=== PATIENT | male | born 1955 | race Caucasian/White ===

== ENCOUNTER 2025-04-13 12:56 | Observation (INO) | payer MEDICARE, OTHER ==
[2025-04-13] MEDS ORDERED: Aspirin Chewable 81 MG TAB ONE (13:34)
[2025-04-13] MEDS ORDERED: Dexamethasone 10 MG/ML VIAL ONE (13:34)
[2025-04-13] MEDS ORDERED: dilTIAZem 25 MG/5 ML VIAL ONE (13:35)
[2025-04-13] MEDS ORDERED: Magnesium 2 GM/50 ML BAG (IN WATER) ONE (13:35)
[2025-04-13] MEDS ORDERED: Enoxaparin 60 MG (0.6 mL) SYRINGE ONE (13:35)
[2025-04-13] MEDS ORDERED: cefTRIAXone (ROCEPHIN) 2 GM VIAL ONE (14:59)
[2025-04-13 15:00] LABS: #Basophils 0.10 10x3/uL (0.0-0.2); #Eosinophils 0.11 10x3/uL (0.0-0.7); #Monocytes 0.71 10x3/uL (0.11-0.59); #Neutrophils 9.06 10x3/uL (1.40-6.50); %Basophils 0.9 % (0.0-1.0); %Eosinophils 1.0 % (0.0-10.0); %Lymphocytes 13.0 % (21.0-51.0); %Monocytes 6.1 % (0.0-10.0); %Neutrophils 78.4 % (42.0-75.0); Hematocrit 34.4 % (42.0-52.0); Hemoglobin 10.1 g/dL (14.0-18.0); Mean Corpuscular Hemoglobin 24.5 pg (27.0-31.0); Mean Corpuscular Volume 83.3 fL (78.0-98.0); Platelet Count 493 10x3/uL (130-400); Red Blood Cell (RBC) Count 4.13 mill/uL (4.70-6.10); White Blood Cell (WBC) Count 11.55 10x3/uL (4.8-10.8)
[2025-04-13 15:14] LABS: ALT (SGPT) 8 U/L (Less than 45); AST (SGOT) 12 U/L (11-34); Albumin 2.5 g/dL (3.1-4.5); Alkaline Phosphatase 99 U/L (40-110); Anion Gap 13 mmol/L (10-20); BUN (Urea Nitrogen) 9 mg/dL (8.4-25.7); Bilirubin, Total 0.4 mg/dL (0.3-1.2); Calc. Creatinine Clearance 0 mL/min (70-130); Calcium 8.5 mg/dL (7.8-10.44); Carbon Dioxide 23 mmol/L (23-31); Chloride 101 mmol/L (98-107); Globulin 4.1 g/dL (2.4-3.5); Glucose 93 mg/dL (80-115); INR-International Normal Ratio 1.4; Potassium 4.3 mmol/L (3.5-5.1); Prothrombin Time 17.2 sec (12.0-14.7); Sodium 133 mmol/L (136-145)
[2025-04-13 15:15] LABS: Acetaminophen Less than 10 mcg/mL (Less than 10); PTT 37.9 sec (22.9-36.1); Salicylate Less than 8.0 mg/dL (Less than 8.0)
[2025-04-13] MEDS ORDERED: Azithromycin 500 MG VIAL ONE (16:33)
[2025-04-13] MEDS ORDERED: Melatonin 3 MG TAB PO PRN (17:39)
[2025-04-13] MEDS ORDERED: Senokot S 8.6-50 MG TAB PO PRN (17:39)
[2025-04-13] MEDS ORDERED: Albuterol 2.5 MG (3 mL) NEB NEB PRN (17:39)
[2025-04-13 18:18] VITALS: BMI 16.2
[2025-04-13] MEDS ORDERED: Mometasone 100 MCG HFA INHALER (RT USE) INH SCH (18:30)
[2025-04-13] MEDS: dilTIAZem 30 MG TAB PO SCH (19:39)
[2025-04-13] MEDS: Mometasone 100 MCG HFA INHALER (RT USE) INH SCH (20:09)
[2025-04-13] MEDS: Apixaban 5 MG TAB PO SCH (21:33)
[2025-04-13] MEDS: Ketorolac Tromethamine 30 MG (1 mL) VIAL IVP PRN (21:33)
[2025-04-13] MEDS: Digoxin 0.5 MG/2 ML AMP SLOW IVP SCH (21:33)
[2025-04-14 00:40] LABS: Magnesium 2.0 mg/dL (1.6-2.6)
[2025-04-14 05:01] LABS: #Basophils Less than 0.03 10x3/uL (0.0-0.2); #Eosinophils Less than 0.03 10x3/uL (0.0-0.7); #Monocytes 0.16 10x3/uL (0.11-0.59); #Neutrophils 5.89 10x3/uL (1.40-6.50); %Basophils 0.1 % (0.0-1.0); %Eosinophils 0.0 % (0.0-10.0); %Lymphocytes 9.6 % (21.0-51.0); %Monocytes 2.4 % (0.0-10.0); %Neutrophils 87.3 % (42.0-75.0); Hematocrit 30.8 % (42.0-52.0); Hemoglobin 9.0 g/dL (14.0-18.0); Mean Corpuscular Hemoglobin 24.4 pg (27.0-31.0); Mean Corpuscular Volume 83.5 fL (78.0-98.0); Platelet Count 434 10x3/uL (130-400); Red Blood Cell (RBC) Count 3.69 mill/uL (4.70-6.10); White Blood Cell (WBC) Count 6.75 10x3/uL (4.8-10.8)
[2025-04-14 05:21] LABS: Anion Gap 12 mmol/L (10-20); BUN (Urea Nitrogen) 18 mg/dL (8.4-25.7); Calc. Creatinine Clearance 67 mL/min (70-130); Calcium 8.2 mg/dL (7.8-10.44); Carbon Dioxide 21 mmol/L (23-31); Chloride 104 mmol/L (98-107); Glucose 167 mg/dL (80-115); Potassium 4.2 mmol/L (3.5-5.1); Sodium 133 mmol/L (136-145)
[2025-04-14] MEDS: cefTRIAXone\\ROCEPHIN 1 GM in Sodium Chloride 0.9% 100 ML IVPB SCH (08:15)
[2025-04-14] MEDS: Magnesium 2 GM/50 ML(in water) 2 GM in Premix 1 BAG IVPB SCH (08:16)
[2025-04-14] MEDS: Acetaminophen 325 MG TAB PO PRN (08:18)
[2025-04-14] MEDS: Rosuvastatin 20 MG TAB PO SCH (08:18)
[2025-04-14] MEDS: predniSONE 20 MG TAB PO SCH (08:18)
[2025-04-14] MEDS: Ondansetron PF 4 MG/2 ML Vial IVP PRN (09:53)
[2025-04-14] MEDS: Azithromycin 500 MG in Sodium Chloride 0.9% 250 ML 250 ML IVPB SCH (09:53)
[2025-04-15 05:17] LABS: #Basophils Less than 0.03 10x3/uL (0.0-0.2); #Eosinophils Less than 0.03 10x3/uL (0.0-0.7); #Monocytes 0.99 10x3/uL (0.11-0.59); #Neutrophils 13.63 10x3/uL (1.40-6.50); %Basophils 0.1 % (0.0-1.0); %Eosinophils 0.0 % (0.0-10.0); %Lymphocytes 8.3 % (21.0-51.0); %Monocytes 6.2 % (0.0-10.0); %Neutrophils 84.8 % (42.0-75.0); Hematocrit 29.4 % (42.0-52.0); Hemoglobin 8.6 g/dL (14.0-18.0); Mean Corpuscular Hemoglobin 24.7 pg (27.0-31.0); Mean Corpuscular Volume 84.5 fL (78.0-98.0); Platelet Count 416 10x3/uL (130-400); Red Blood Cell (RBC) Count 3.48 mill/uL (4.70-6.10); White Blood Cell (WBC) Count 16.07 10x3/uL (4.8-10.8)
[2025-04-15 05:34] LABS: Anion Gap 16 mmol/L (10-20); BUN (Urea Nitrogen) 28 mg/dL (8.4-25.7); Calc. Creatinine Clearance 64 mL/min (70-130); Calcium 8.1 mg/dL (7.8-10.44); Carbon Dioxide 22 mmol/L (23-31); Chloride 103 mmol/L (98-107); Glucose 122 mg/dL (80-115); Potassium 4.8 mmol/L (3.5-5.1); Sodium 136 mmol/L (136-145)
[2025-04-15 08:21] VITALS: BP 111/71; TEMP 98.5
== END 2025-04-15 09:41 | disposition hospice, home (50) ==
LOC: ERS 12:56 → OBS 16:35
PROVIDERS: ADMIT Internal Medicine; ATTEND Hospitalist
DX: J44.1 Chronic obstructive pulmonary disease with (acute) exacerbation (principal); I48.91 Unspecified atrial fibrillation; I10 Essential (primary) hypertension; E11.9 Type 2 diabetes mellitus without complications; E78.5 Hyperlipidemia, unspecified; F17.200 Nicotine dependence, unspecified, uncomplicated; Z86.73 Personal history of transient ischemic attack (TIA), and cerebral infarction without residual deficits; Z88.8 Allergy status to other drugs, medicaments and biological substances; Z88.5 Allergy status to narcotic agent; Z79.01 Long term (current) use of anticoagulants; Z79.51 Long term (current) use of inhaled steroids; Z79.82 Long term (current) use of aspirin; Z79.899 Other long term (current) drug therapy
CPT/HCPCS: 70450; 71045; 80048 ×2; 80053; 80307; 83605; 83735; 83880; 84484 ×2; 85025 ×3; 85610; 85730; 87040; 93005; 94640 ×6; 94664; 94760; 96365; 96366; 96367; 96372; 96375 ×3; 96376; 99285; G0378 ×4; J0456 ×2; J0696 ×2; J1100; J1160; J1650; J1885 ×2; J2405; J3475 ×2; J7050; 36415; J7512; J7620

== ENCOUNTER 2025-07-12 01:57 | Inpatient (IN) | payer MEDICARE, OTHER ==
[2025-07-12] MEDS ORDERED: Dexamethasone 10 MG/ML VIAL ONE (02:23)
[2025-07-12] MEDS ORDERED: Magnesium 2 GM/50 ML BAG (IN WATER) ONE (02:23)
[2025-07-12] MEDS ORDERED: Albuterol 2.5 MG (3 mL) NEB ONE (02:42)
[2025-07-12 02:58] LABS: Actual Bicarbonate (HCO3a) 20.7 mEq/L (22-28); Analyzer IN Cardio ER; Base Excess (BEa) -5.2 mEq/L (-2.0 to +3.0); CO2 Tension 41.2 mmHg (35.0-45.0); Calcium, Ionized (arterial) 1.17 mmol/L (1.12-1.30); Hematocrit-ABG 39 % (42.0-52.0); Hemoglobin (Hb) 13.2 g/dL (14.0-18.0); O2 Tension (PaO2), arterial 67.3 mmHg (> 70.0); Potassium - ABG Lab 3.73 mmol/L (3.70-5.30); pH, Arterial 7.318 (7.35-7.45)
[2025-07-12 02:59] LABS: Puncture Site Right Radial artery
[2025-07-12 03:33] LABS: #Basophils 0.06 10x3/uL (0.0-0.2); #Eosinophils 0.11 10x3/uL (0.0-0.7); #Monocytes 0.30 10x3/uL (0.11-0.59); #Neutrophils 7.31 10x3/uL (1.40-6.50); %Basophils 0.7 % (0.0-1.0); %Eosinophils 1.2 % (0.0-10.0); %Lymphocytes 12.5 % (21.0-51.0); %Monocytes 3.4 % (0.0-10.0); %Neutrophils 81.8 % (42.0-75.0); Hematocrit 38.3 % (42.0-52.0); Hemoglobin 11.5 g/dL (14.0-18.0); Mean Corpuscular Hemoglobin 25.9 pg (27.0-31.0); Mean Corpuscular Volume 86.3 fL (78.0-98.0); Platelet Count 375 10x3/uL (130-400); Red Blood Cell (RBC) Count 4.44 mill/uL (4.70-6.10); White Blood Cell (WBC) Count 8.94 10x3/uL (4.8-10.8)
[2025-07-12 03:52] LABS: ALT (SGPT) 17 U/L (Less than 45); AST (SGOT) 25 U/L (11-34); Albumin 2.7 g/dL (3.1-4.5); Alkaline Phosphatase 160 U/L (40-110); Anion Gap 14 mmol/L (10-20); BUN (Urea Nitrogen) 8 mg/dL (8.4-25.7); Bilirubin, Total 0.2 mg/dL (0.3-1.2); Calc. Creatinine Clearance 0 mL/min (70-130); Calcium 8.5 mg/dL (7.8-10.44); Carbon Dioxide 26 mmol/L (23-31); Chloride 98 mmol/L (98-107); Globulin 3.9 g/dL (2.4-3.5); Glucose 109 mg/dL (80-115); Potassium 4.3 mmol/L (3.5-5.1); Sodium 134 mmol/L (136-145)
[2025-07-12] MEDS ORDERED: Albuterol 2.5 MG (3 mL) NEB NEB PRN (04:33)
[2025-07-12 04:42] LABS: Actual Bicarbonate (HCO3a) 19.1 mEq/L (22-28); Base Excess (BEa) -5.8 mEq/L (-2.0 to +3.0); CO2 Tension 35.6 mmHg (35.0-45.0); Calcium, Ionized (arterial) 1.13 mmol/L (1.12-1.30); Hematocrit-ABG 33 % (42.0-52.0); Hemoglobin (Hb) 11.1 g/dL (14.0-18.0); O2 Tension (PaO2), arterial 149.5 mmHg (> 70.0); Potassium - ABG Lab 3.83 mmol/L (3.70-5.30); pH, Arterial 7.348 (7.35-7.45)
[2025-07-12 04:43] LABS: Puncture Site Right Brachial art
[2025-07-12] MEDS ORDERED: Dextrose 50% Abboject 50 ML SYRINGE SLOW IVP PRN (04:43)
[2025-07-12] MEDS ORDERED: Glucagon 1 MG/ML KIT IM PRN (04:43)
[2025-07-12 04:49] LABS: ALV-art Gradient 5.640 mmHg (0-20)
[2025-07-12] MEDS ORDERED: Enoxaparin 60 MG (0.6 mL) SYRINGE ONE (04:53)
[2025-07-12] MEDS ORDERED: LevoFLOXacin 750 mg/D5W 150 ml Premix Bag ONE (04:54)
[2025-07-12 06:46] VITALS: BMI 15.7
[2025-07-12] MEDS ORDERED: dilTIAZem 25 MG/5 ML VIAL SLOW IVP SCH (08:00)
[2025-07-12] MEDS ORDERED: Metoprolol Tartrate 5 MG (5 mL) VIAL IVP SCH (08:00)
[2025-07-12] MEDS ORDERED: Iopamidol-370 76% 500 ML MDV (1 ML CHARGE) ONE (10:01)
[2025-07-12 12:38] VITALS: BP 118/93
[2025-07-12] MEDS: FLU (Fluad Triv) 25-26 (65UP)PF 45 MCG/0.5 ML Syringe IM ONE (15:12)
[2025-07-12] MEDS: Rosuvastatin 20 MG TAB PO SCH (20:33)
[2025-07-12] MEDS: Apixaban 5 MG TAB PO SCH (20:33)
[2025-07-12] MEDS: Famotidine 20 MG TAB PO SCH (20:33)
[2025-07-13] MEDS: Ondansetron PF 4 MG/2 ML Vial IVP PRN (02:52)
[2025-07-13 04:59] LABS: #Basophils Less than 0.03 10x3/uL (0.0-0.2); #Eosinophils Less than 0.03 10x3/uL (0.0-0.7); #Monocytes 0.27 10x3/uL (0.11-0.59); #Neutrophils 11.56 10x3/uL (1.40-6.50); %Basophils 0.2 % (0.0-1.0); %Eosinophils 0.0 % (0.0-10.0); %Lymphocytes 5.7 % (21.0-51.0); %Monocytes 2.1 % (0.0-10.0); %Neutrophils 91.3 % (42.0-75.0); Hematocrit 35.2 % (42.0-52.0); Hemoglobin 10.6 g/dL (14.0-18.0); Mean Corpuscular Hemoglobin 26.1 pg (27.0-31.0); Mean Corpuscular Volume 86.7 fL (78.0-98.0); Platelet Count 331 10x3/uL (130-400); Red Blood Cell (RBC) Count 4.06 mill/uL (4.70-6.10); White Blood Cell (WBC) Count 12.66 10x3/uL (4.8-10.8)
[2025-07-13] MEDS: LevoFLOXacin 750 mg/D5W 750 MG in Premix 1 BAG IVPB SCH (05:14)
[2025-07-13 05:23] LABS: ALT (SGPT) 33 U/L (Less than 45); AST (SGOT) 68 U/L (11-34); Albumin 2.5 g/dL (3.1-4.5); Alkaline Phosphatase 145 U/L (40-110); Anion Gap 15 mmol/L (10-20); BUN (Urea Nitrogen) 19 mg/dL (8.4-25.7); Bilirubin, Total 0.2 mg/dL (0.3-1.2); Calc. Creatinine Clearance 84 mL/min (70-130); Calcium 9.1 mg/dL (7.8-10.44); Carbon Dioxide 25 mmol/L (23-31); Chloride 101 mmol/L (98-107); Globulin 4.0 g/dL (2.4-3.5); Glucose 159 mg/dL (80-115); Magnesium 1.9 mg/dL (1.6-2.6); Potassium 4.6 mmol/L (3.5-5.1); Sodium 136 mmol/L (136-145)
[2025-07-13] MEDS: Folic Acid 1 MG TAB PO SCH (09:54)
[2025-07-13 12:23] VITALS: TEMP 97.7
== END 2025-07-13 18:00 | disposition hospice, home (50) | DRG 189 ==
LOC: ERS 01:57 → ERHOLD 04:31 → CCU 06:13
PROVIDERS: ADMIT Internal Medicine; ATTEND Student in an Organized Health Care Education/Training Program
PROC: 4A133R1 Monitoring of Arterial Saturation, Peripheral, Percutaneous Approach (ICD-10-PCS; principal; 2025-07-12)
PROC: 3E03329 Introduction of Other Anti-infective into Peripheral Vein, Percutaneous Approach (ICD-10-PCS; 2025-07-12)
PROC: 3E02340 Introduction of Influenza Vaccine into Muscle, Percutaneous Approach (ICD-10-PCS; 2025-07-12)
PROC: 5A09357 Assistance with Respiratory Ventilation, Less than 24 Consecutive Hours, Continuous Positive Airway Pressure (ICD-10-PCS; 2025-07-12)
DX: J96.21 Acute and chronic respiratory failure with hypoxia (principal); G92.8 Other toxic encephalopathy; J44.1 Chronic obstructive pulmonary disease with (acute) exacerbation; I69.352 Hemiplegia and hemiparesis following cerebral infarction affecting left dominant side; Z66 Do not resuscitate; Z51.5 Encounter for palliative care; E11.9 Type 2 diabetes mellitus without complications; I48.0 Paroxysmal atrial fibrillation; I10 Essential (primary) hypertension; E78.5 Hyperlipidemia, unspecified; F10.90 Alcohol use, unspecified, uncomplicated; Z87.891 Personal history of nicotine dependence; Z88.5 Allergy status to narcotic agent; Z88.8 Allergy status to other drugs, medicaments and biological substances; Z86.711 Personal history of pulmonary embolism; Z86.718 Personal history of other venous thrombosis and embolism; Z23 Encounter for immunization
CPT/HCPCS: 36415; 36416; 36600; 71045; 71275; 80053; 82805; 83605; 83735; 83880; 84484; 85025; 85379; 87040; 87428; 90653; 93005; 94640; 94644; 94660; 94760; 96365; 96367; 96372; 96375; J1100; J1650; J1815; J1956; J2060; J2405; J2919; J3475; J7611; J7626; Q9967